=== PATIENT | female | born 1960 | race Caucasian/White ===

== ENCOUNTER 2017-03-11 21:30 | Emergency (ER) | payer BC ==
[2017-03-11 21:44] LABS: BASOPHILS % (AUTO) 0.4 % (0.0-5.0); EOSINOPHILS % (AUTO) 0.8 % (0.0-8.0); HEMATOCRIT 43.9 % (36-48); LYMPHOCYTES % (AUTO) 6.1 % (21.0-51.0); MEAN CORPUSCULAR HEMOGLOBIN 30.9 pg (27.0-33.0); MEAN CORPUSCULAR HGB CONC 34.9 g/dL (32.0-36.0); MEAN CORPUSCULAR VOLUME 88.6 fL (79-99); MONOCYTES % (AUTO) 7.1 % (3.0-13.0); NEUTROPHILS % (AUTO) 85.6 % (40.0-77.0); PLATELET COUNT (AUTO) 387 K/uL (130-400); RED BLOOD CELL COUNT(AUTO) 4.96 MIL/uL (4.00-5.50); RED CELL DISTRIBUTION WIDTH 13.7 % (11.0-15.5); WHITE BLOOD COUNT (AUTO) 9.6 K/uL (4.8-10.8)
[2017-03-11 21:59] LABS: APPEARANCE,URINE Clear (CLEAR); BILIRUBIN,URINE Negative (NEGATIVE); COLOR,URINE Yellow (YELLOW); GLUCOSE, URINE (UA) Negative (NEGATIVE); KETONES,URINE Trace mg/dL (NEGATIVE); LEUKOCYTE ESTERASE ,URINE Negative (NEGATIVE); NITRATE,URINE Negative (NEGATIVE); OCCULT BLOOD,URINE Negative (NEGATIVE); PROTEIN,URINE Negative (NEGATIVE)
[2017-03-11 22:14] LABS: MAGNESIUM 1.7 mg/dL (1.80-2.40); PHOSPHORUS 2.8 mg/dL (2.5-4.9)
[2017-03-11 22:20] LABS: BACTERIA,URINE Rare /HPF (None Seen); MUCUS,URINE Many LPF (None Seen); RBC,URINE None Seen /HPF (0-1); SQUAMOUS EPITHELIAL CELL,UR Moderate /LPF (0-2); WBC,URINE None Seen /HPF (0-1)
[2017-03-11 22:25] LABS: CREATININE 1.1 mg/dL (0.5-1.5); POTASSIUM 3.1 mmol/L (3.5-5.1)
[2017-03-11] MEDS ORDERED: SODIUM CHLORIDE 0.9% 1000ML 2,000 ML IV ONE (22:39)
[2017-03-11] MEDS ORDERED: POTASSIUM CHLORIDE 20 MEQ ERTAB PO ONE (23:18)
[2017-03-11] MEDS ORDERED: POTASSIUM CHLORIDE 20MEQ/100ML 100 ML IV ONE (23:19)
[2017-03-11] MEDS ORDERED: MAGNESIUM 2GM PREMIX 50ML 50 ML IV ONE (23:19)
[2017-03-12] MEDS ORDERED: IOPAMIDOL-370 100 ML VIAL IV ONE (02:14)
== END 2017-03-12 04:29 | disposition home or self-care (01) ==
LOC: EDH 21:30
DX: R00.0 Tachycardia, unspecified (principal); R00.2 Palpitations; I10 Essential (primary) hypertension; Z88.2 Allergy status to sulfonamides; Z72.0 Tobacco use
CPT/HCPCS: 36415; 71045; 71275; 80048; 81001; 83735; 84100; 84443; 84484; 85025; 87804 ×2; 93005; 96361; 96365; 96366; 99285; J3475; J3480; J7030; Q9967

== ENCOUNTER → 2024-08-27 | Outpatient (CLI) | payer BC ==
--- NOTE | 2024-08-27 13:58 | HMCIMG ---
UPPER GI TRACT, WO KUB INDICATION: Diaphragmatic hernia without obstruction or gangrene FINDINGS: Examination was performed in standard fashion and shows the esophagus has normal caliber and peristalsis throughout. The stomach has normal size, shape and is in normal position. Barium flows freely through the pylorus and into normal-appearing duodenal bulb and sweep. The angle of Treitz lies to the left of midline. Gastroesophageal reflux reaching the mid esophagus is noted during the examination. There is no evidence of hiatal hernia. FLUORO TIME: 1.6 minus IMPRESSION: Gastroesophageal reflux, otherwise unremarkable examination.
== END | disposition home or self-care (01) ==
LOC: RAH 09:02
PROVIDERS: ATTEND Internal Medicine Gastroenterology
DX: K21.9 Gastro-esophageal reflux disease without esophagitis (principal); K44.9 Diaphragmatic hernia without obstruction or gangrene
CPT/HCPCS: 74240

== ENCOUNTER → 2024-09-03 | Outpatient (CLI) | payer BC ==
--- NOTE | 2024-09-06 21:00 | HMCIMG ---
EXAM: Nuclear Medicine Gastric Emptying Scan. INDICATION: Abdominal distension REFERENCE EXAMINATION: None. TECHNIQUE: 2.1 mCi of Tc99m sulfur colloid with egg whites, 2 slices of bread/jam, 4 ounces of water. FINDINGS: Transit of radiopharmaceutical is seen from the stomach into the small bowel. 50% gastric empyting not achieved during the period of study. IMPRESSION: Scintigraphic findings suggest gastroparesis. /[place]
== END | disposition home or self-care (01) ==
LOC: RAH 07:09
PROVIDERS: ATTEND Internal Medicine Gastroenterology
DX: R14.0 Abdominal distension (gaseous) (principal)
CPT/HCPCS: 78264; A9541